=== PATIENT | male | born 1945 | race Caucasian/White ===

== ENCOUNTER 2017-09-17 09:04 | Day surgery (SDC) | payer OTHER ==
[~2017-09-17] VITALS: Ht 180.3 cm; Wt 116.6 kg
[~2017-09-17 09:04] MED LIST: AMLODIPINE; ASPI81EC PO; ATOR10 PO; CHLO2 PO; CIPRSO OD; CLON.1 PO; Exforge 10-3201 EACH PO; FLUO20 PO; FLUOXETINE PO; HYDCHL25 PO; HYDMOR2 PO; IBUP800 PO; INDO50 PO; KLOR-CON PO; LEVO-T50 MCG PO; OXYACE5T PO; POTCHL10ER PO; PROM25 PO; RXHYDMOR2 PO; TAMS.4ER PO; TRAN2 PO; TRAZ50 PO; VALSARTAN
== END 2017-09-17 14:40 | disposition home or self-care (01) ==
LOC: ORSCSDS 09:04
PROVIDERS: Orthopaedic Surgery
PROC: 0LQ24ZZ Repair Left Shoulder Tendon, Percutaneous Endoscopic Approach (ICD-10-PCS; principal; 2017-09-17 10:30)
PROC: 0RNK4ZZ Release Left Shoulder Joint, Percutaneous Endoscopic Approach (ICD-10-PCS; principal; 2017-09-17 10:30)
DX: M75.122 Complete rotator cuff tear or rupture of left shoulder, not specified as traumatic (principal); M75.42 Impingement syndrome of left shoulder; I10 Essential (primary) hypertension; G47.33 Obstructive sleep apnea (adult) (pediatric); E03.9 Hypothyroidism, unspecified; Z79.899 Other long term (current) drug therapy; E66.9 Obesity, unspecified; Z68.35 Body mass index [BMI] 35.0-35.9, adult
CPT/HCPCS: C1713; J0171; J0690; J1100; J1885; J2250; J2405; J2710; J3010; J7120

== ENCOUNTER → 2017-10-03 | Outpatient (CLI) | payer OTHER | END | disposition home or self-care (01) | LOC: LAB SHORT 08:36 → PLD 08:36 | DX: C43.59 Malignant melanoma of other part of trunk (principal) | CPT/HCPCS: 88305; 88341; 88342 ==

== ENCOUNTER → 2018-08-22 | Outpatient (CLI) | payer OTHER | END | disposition home or self-care (01) | LOC: LAB SHORT 11:51 → PLD 11:51 | DX: D48.5 Neoplasm of uncertain behavior of skin (principal) | CPT/HCPCS: 88305 ==

== ENCOUNTER 2019-08-20 16:07 | Emergency (ER) | payer OTHER ==
[~2019-08-20] VITALS: Ht 180.3 cm; Wt 100.7 kg
[~2019-08-20 16:07] MED LIST changes: +AMLO10 PO; -Exforge 10-3201 EACH PO; -FLUO20 PO; -LEVO-T50 MCG PO; +Prozac40 MG PO
[2019-08-20 16:39] LABS: Hematocrit 41.4 % (37.0-53.0); Hemoglobin 13.6 g/dL (13.5-17.5); Mean Corpuscular HGB 31.1 pg (26.0-34.0); Mean Corpuscular HGB Conc 32.9 g/dL (31.5-36.5); Mean Corpuscular Volume 95 fL (80-100); Mean Platelet Volume 11.6 fL (9.1-12.4); Platelet Count 116 K/mm3 (150-400); RDW Coefficient Variation 13.8 % (11.7-14.2); RDW Standard Deviation 48.2 fL (35.1-46.3); Red Blood Cell Count 4.37 M/mm3 (4.30-5.90); White Blood Cell Count 8.26 K/mm3 (4.00-11.30)
[2019-08-20 17:08] LABS: Alanine Aminotransfer (ALT/SGP 35 U/L (12-78); Albumin, Blood 3.6 g/dL (3.4-5.0); Albumin/Globulin Ratio 1.2 (0.8-1.8); Alk Phos 136 U/L (50-136); Anion Gap 8 mmol/L (6-16); Aspartate Aminotrans (AST/SGOT 71 U/L (12-37); Bilirubin, Total 0.6 mg/dL (0.1-1.0); Blood Urea Nitrogen 21 mg/dL (8-24); Bun/Creatinine Ratio 14.2 (12.0-20.0); CO2, Blood 25 mmol/L (21-32); Calcium, Blood 9.6 mg/dL (8.5-10.1); Chloride, Blood 109 mmol/L (98-108); Creatinine, Blood 1.48 mg/dL (0.60-1.20); Glomerular Filtration Rate 49 (60-); Glucose, Blood 89 mg/dL (70-99); Potassium, Blood 4.1 mmol/L (3.5-5.5); Sodium, Blood 142 mmol/L (136-145); Total Protein, Blood 6.6 g/dL (6.4-8.2); Troponin I <0.015 ng/mL (0.000-0.040)
[2019-08-20 17:26] LABS: BASOPHILS PERCENT MAN 0 % (0-2); EOSINOPHILS ABSOLUTE MAN 0.08 K/mm3 (0.00-0.68); EOSINOPHILS PERCENT MAN 1 % (0-6); LYMPHOCYTES % ATYPICAL MANUAL 3 % (0-0); LYMPHOCYTES ABSOLUTE MAN 3.38 K/mm3 (0.84-5.20); LYMPHOCYTES PERCENT MAN 38 % (21-46); MONOCYTES PERCENT MAN 17 % (4-13); NEUTROPHILS ABSOLUTE MAN 3.38 K/mm3 (1.96-9.15); SEG NEUTROPHILS PERCENT MAN 41 % (41-73); TOTAL CELLS COUNTED 100
== END 2019-08-20 20:48 | disposition home or self-care (01) ==
LOC: ER 16:07
PROVIDERS: Physician Assistant
DX: J90 Pleural effusion, not elsewhere classified (principal); R16.1 Splenomegaly, not elsewhere classified; C85.90 Non-Hodgkin lymphoma, unspecified, unspecified site; Z88.5 Allergy status to narcotic agent; Z88.8 Allergy status to other drugs, medicaments and biological substances; Z79.899 Other long term (current) drug therapy; Z79.82 Long term (current) use of aspirin; I10 Essential (primary) hypertension; Z87.891 Personal history of nicotine dependence
CPT/HCPCS: 36415; 71260; 80053; 84484; 85025; 93005; 93010; 99284-25; Q9967

== ENCOUNTER 2019-08-24 21:13 | Emergency (ER) | payer OTHER ==
[~2019-08-24] VITALS: Ht 180.3 cm; Wt 101.2 kg
[2019-08-24 22:09] LABS: BASOPHILS ABSOLUTE AUTO 0.04 K/mm3 (0.00-0.23); BASOPHILS PERCENT AUTO 1 % (0-2); EOSINOPHILS ABSOLUTE AUTO 0.04 K/mm3 (0.00-0.68); EOSINOPHILS PERCENT AUTO 1 % (0-6); Hematocrit 41.1 % (37.0-53.0); Hemoglobin 13.6 g/dL (13.5-17.5); Mean Corpuscular HGB 31.1 pg (26.0-34.0); Mean Corpuscular HGB Conc 33.1 g/dL (31.5-36.5); Mean Corpuscular Volume 94 fL (80-100); Mean Platelet Volume 11.4 fL (9.1-12.4); Platelet Count 110 K/mm3 (150-400); RDW Coefficient Variation 13.7 % (11.7-14.2); RDW Standard Deviation 47.2 fL (35.1-46.3); Red Blood Cell Count 4.38 M/mm3 (4.30-5.90); White Blood Cell Count 5.38 K/mm3 (4.00-11.30)
[2019-08-24 22:12] LABS: IMMATURE GRAN ABSOLUTE AUTO 0.01 K/mm3 (0.00-0.10); IMMATURE GRAN PERCENT AUTO 0 % (0-1); LYMPHOCYTES PERCENT AUTO 20 % (21-46); MONOCYTES ABSOLUTE AUTO 1.72 K/mm3 (0.16-1.47); MONOCYTES PERCENT AUTO 32 % (4-13); NEUTROPHILS ABSOLUTE AUTO 2.47 K/mm3 (1.96-9.15); NEUTROPHILS PERCENT AUTO 46 % (41-73)
[2019-08-24 22:25] LABS: Albumin, Blood 3.6 g/dL (3.4-5.0); Albumin/Globulin Ratio 1.2 (0.8-1.8); Bilirubin, Total 0.8 mg/dL (0.1-1.0); Bun/Creatinine Ratio 15.1 (12.0-20.0); Calcium, Blood 9.3 mg/dL (8.5-10.1); Creatinine, Blood 1.46 mg/dL (0.60-1.20); Potassium, Blood 3.8 mmol/L (3.5-5.5); Total Protein, Blood 6.6 g/dL (6.4-8.2)
[2019-08-24] MEDS ORDERED: IRBESARTAN150 MG PO (22:56)
[2019-08-24] MEDS ORDERED: LEVSOD50 PO (22:57)
[2019-08-24] MEDS ORDERED: ATOR10 PO (22:57)
[2019-08-24] MEDS ORDERED: PREVNAR 13 SYR0.5 ML IM (22:58)
[2019-08-25] MEDS ORDERED: HYDR1TAB94 PO (00:12)
[2019-08-25] MEDS ORDERED: MOTRIN IB200 MG PO (00:12)
[2019-08-25 00:37] LABS: Source, Urine Voided
[2019-08-25 00:41] LABS: Bilirubin, Urine Neg (Neg); Blood, Urine 5+ (Neg); Glucose Qualitative, Urine Neg (Neg); Ketones, Urine Neg (Neg); Leukocyte Esterase, Urine 1+ (Neg); Nitrite, Urine Neg (Neg); Protein, Urine 2+ (Neg); Urobilinogen, Urine NORM (Normal)
[2019-08-25 00:42] LABS: Appearance, Urine Clear (Clear); Color, Urine Yellow (P-Yellow)
[2019-08-25 00:49] LABS: Amorphous Light (0-Heavy); Bacteria Mod /hpf; Hyaline Casts 50-100 /lpf (0-2); Mucus Mod (0-Heavy); Squamous Epithelial Cells Not Seen /hpf (Few)
== END 2019-08-25 00:53 | disposition home or self-care (01) ==
LOC: ER 21:13
PROVIDERS: Emergency Medicine; Physician Assistant
DX: N13.2 Hydronephrosis with renal and ureteral calculous obstruction (principal); C85.90 Non-Hodgkin lymphoma, unspecified, unspecified site; I10 Essential (primary) hypertension; G47.30 Sleep apnea, unspecified; Z88.5 Allergy status to narcotic agent; Z79.899 Other long term (current) drug therapy; Z87.891 Personal history of nicotine dependence
CPT/HCPCS: 36415; 51798; 74176; 80053; 81001; 83690; 85025; 87086; 96361; 96374; 99284-25; J1885; J7030

== ENCOUNTER → 2019-08-25 | Outpatient (CLI) | payer OTHER ==
[~2019-08-25] MED LIST changes: +ALLO300 PO; +HYDR1TAB94 PO; +IRBESARTAN150 MG PO; +LEVSOD50 PO; +METO25ER PO; +MOTRIN IB200 MG PO; +PREVNAR 13 SYR0.5 ML IM
[2019-09-10 11:07] LABS: CA OXALATE MONOHYDR. 10 % (.); COLOR Orange (.); SIZE 5x4x3 mm (.); URIC ACID 88 % (.); WEIGHT 37.8 mg (.)
== END | disposition home or self-care (01) ==
LOC: LAB SHORT 09:00 → LAB 09:00
PROVIDERS: Internal Medicine
DX: N20.0 Calculus of kidney (principal)
CPT/HCPCS: 82360

== ENCOUNTER 2019-09-09 15:49 | Inpatient (IN) | payer OTHER ==
[~2019-09-09] VITALS: Ht 180.3 cm; Wt 101.1 kg
[~2019-09-09 15:49] MED LIST changes: -ALLO300 PO; -METO25ER PO
[2019-09-09 16:46] LABS: BASOPHILS ABSOLUTE AUTO 0.01 K/mm3 (0.00-0.23); BASOPHILS PERCENT AUTO 0 % (0-2); EOSINOPHILS ABSOLUTE AUTO 0.11 K/mm3 (0.00-0.68); EOSINOPHILS PERCENT AUTO 2 % (0-6); Hematocrit 38.5 % (37.0-53.0); IMMATURE GRAN ABSOLUTE AUTO 0.09 K/mm3 (0.00-0.10); IMMATURE GRAN PERCENT AUTO 1 % (0-1); LYMPHOCYTES ABSOLUTE AUTO 0.22 K/mm3 (0.84-5.20); LYMPHOCYTES PERCENT AUTO 3 % (21-46); MONOCYTES ABSOLUTE AUTO 0.27 K/mm3 (0.16-1.47); MONOCYTES PERCENT AUTO 4 % (4-13); Mean Corpuscular HGB 31.3 pg (26.0-34.0); Mean Corpuscular HGB Conc 33.8 g/dL (31.5-36.5); Mean Corpuscular Volume 93 fL (80-100); Mean Platelet Volume 11.2 fL (9.1-12.4); NEUTROPHILS PERCENT AUTO 90 % (41-73); Platelet Count 66 K/mm3 (150-400); RDW Coefficient Variation 14.1 % (11.7-14.2); RDW Standard Deviation 47.6 fL (35.1-46.3); Red Blood Cell Count 4.16 M/mm3 (4.30-5.90)
[2019-09-09 17:04] LABS: Albumin, Blood 3.4 g/dL (3.4-5.0); Albumin/Globulin Ratio 1.2 (0.8-1.8); Bilirubin, Total 0.9 mg/dL (0.1-1.0); Calcium, Blood 8.3 mg/dL (8.5-10.1); Creatinine, Blood 1.29 mg/dL (0.60-1.20); Globulin, Blood 2.8 g/dL (2.2-4.0); Potassium, Blood 3.5 mmol/L (3.5-5.5); Total Protein, Blood 6.2 g/dL (6.4-8.2); Troponin I 0.019 ng/mL (0.000-0.040)
[2019-09-09 18:02] LABS: Phosphorus, Blood 3.5 mg/dL (2.5-4.9)
[2019-09-09 18:34] LABS: Source, Urine Clean Catch
[2019-09-09 18:37] LABS: Appearance, Urine Clear (Clear); Bilirubin, Urine Neg (Neg); Blood, Urine 3+ (Neg); Color, Urine Amber (P-Yellow); Glucose Qualitative, Urine Neg (Neg); Ketones, Urine 2+ (Neg); Leukocyte Esterase, Urine 1+ (Neg); Nitrite, Urine Neg (Neg); Protein, Urine 2+ (Neg); Specific Gravity, Urine 1.025 (1.003-1.022); Urobilinogen, Urine 1+ (Normal)
[2019-09-09 18:47] LABS: Amorphous Light (0-Heavy); Bacteria Many /hpf; Mucus Light (0-Heavy); Squamous Epithelial Cells Few /hpf (Few)
[2019-09-09] MEDS ORDERED: ALLO300 PO (18:49)
[2019-09-09] MEDS ORDERED: HYDCHL25 PO (19:08)
--- NOTE | 2019-09-09 20:40 | NUR ---
ANGELA IS BEING ADMITTED FOR INTRACTABLE NAUSEA AND VOMITING, UTI, AND DYSPNEA. ANGELA ARRIVED TO THE FLOOR VIA WC. WAS ABLE TO TRANSFER WITH 1 ASSIST TO THE BED. SLIGHTLY UNSTEADY ON HIS FEET. REPORTS BLE WEAKNESS FOR SEVERAL DAYS NOW. STATES HE HAD CHEMO FOR NEWLY DX LYPHOMA LAST WEEK. SINCE THEN HE HAS HAD N/V AND INABILITY TO KEEP ANYTHING DOWN. NO NAUSEA CURRENTLY, PHENERGAN GIVEN IN ER. ABD TENDER TO TOUCH, BM TODAY. LUNG SOUNDS DIMINISHED, NO RESPIRTORY HX OTHER THEN TOLD HE HAD FLUID IN THE [place] SAC PRIOR TO CHEMO NOT ENOUGH TO TAP. NOW DYSPNIC AND REQUIRING 10L OF O2. SATS WERE 96% TURNED O2 DOWN TO 8L, RT NOTIFED. NO EDEMA NOTED. HR REGULAR NO MURMUR. BP NORMAL. MILD TEMP, WILL MONITOR. SKIN PDI. IV TO LEFT WRIST STARTED AT [facility] TODAY. FLUSHED GOOD. WENT HOME FOR THE NIGHT, CALL LIGHT GIVEN AND INSTRUCTED ON. WILL MONITOR AND PROVIDE INTERVENTIONS THROUGOUT THE NIGHT.
[2019-09-10 04:44] LABS: BASOPHILS ABSOLUTE AUTO 0.01 K/mm3 (0.00-0.23); BASOPHILS PERCENT AUTO 0 % (0-2); EOSINOPHILS ABSOLUTE AUTO 0.07 K/mm3 (0.00-0.68); EOSINOPHILS PERCENT AUTO 2 % (0-6); Hematocrit 34.8 % (37.0-53.0); Hemoglobin 11.6 g/dL (13.5-17.5); IMMATURE GRAN ABSOLUTE AUTO 0.07 K/mm3 (0.00-0.10); IMMATURE GRAN PERCENT AUTO 2 % (0-1); LYMPHOCYTES ABSOLUTE AUTO 0.17 K/mm3 (0.84-5.20); LYMPHOCYTES PERCENT AUTO 4 % (21-46); MONOCYTES ABSOLUTE AUTO 0.21 K/mm3 (0.16-1.47); MONOCYTES PERCENT AUTO 5 % (4-13); Mean Corpuscular HGB 31.2 pg (26.0-34.0); Mean Corpuscular HGB Conc 33.3 g/dL (31.5-36.5); Mean Corpuscular Volume 94 fL (80-100); NEUTROPHILS ABSOLUTE AUTO 4.15 K/mm3 (1.96-9.15); NEUTROPHILS PERCENT AUTO 89 % (41-73); Platelet Count 63 K/mm3 (150-400); RDW Coefficient Variation 14.3 % (11.7-14.2); RDW Standard Deviation 48.5 fL (35.1-46.3); Red Blood Cell Count 3.72 M/mm3 (4.30-5.90); White Blood Cell Count 4.68 K/mm3 (4.00-11.30)
[2019-09-10 05:03] LABS: Albumin, Blood 2.9 g/dL (3.4-5.0); Albumin/Globulin Ratio 1.1 (0.8-1.8); Bilirubin, Total 0.6 mg/dL (0.1-1.0); Bun/Creatinine Ratio 12.5 (12.0-20.0); Calcium, Blood 7.4 mg/dL (8.5-10.1); Creatinine, Blood 1.28 mg/dL (0.60-1.20); Globulin, Blood 2.6 g/dL (2.2-4.0); Magnesium, Blood 1.3 mg/dL (1.6-2.4); Potassium, Blood 3.4 mmol/L (3.5-5.5); Total Protein, Blood 5.5 g/dL (6.4-8.2)
--- NOTE | 2019-09-10 05:46 | NUR ---
SHIFT SUMMARY: PAULETTE WAS ADMITTED TO THE FLOOR LAST NIGHT FOR INTRACTABLE NAUSEA AND VOMITING, UTI, AND DYSPNEA. HE HAS NOT HAD ANY NAUSEA SINCE HE HAS BEEN ON THE FLOOR. NO ANTIEMETICS WERE USED. WAS ABLE TO TOLERATE WATER. RECEIVED 1 LITER OF BOLUS THEN IV FLUIDS STARTED AT 125ML/HR. USED URINAL AT BEDSIDE, URINE WAS CONCENTRATED AND ORANGE COLOR. HE ARRIVED TO THE FLOOR ON 10L OF O2, AT WHICH HE CONTINUED TO DESAT WHEN HE SLEPT. CALLED RT AND HE WAS PLACED ON CPAP WITH 10L O2 FEED IN. HE DID NOT TOLERATE THE MASK WELL, AND TOOK IT OFF CAUSING HIS SATS TO DROP IN LOW 80'S. UNABLE TO MAINTAIN 90'S ON 10L OF NC, HE WAS PLACED ON SMALLER MASK AND INFORMED THAT HE MUST WEAR IT WHILE SLEEPING OR HE WOULD NEED TO GO ON BIPAP. HE SLEPT REST OF THE NIGHT WITH THE CPAP SATS REMAINED IN THE LOW 90'S. VS ON ARRIVAL SHOWED TEMP OF 101. ON RETAKE IT WAS NORMAL LIMITS. DISCUSSED DEEP BREATHING AND IMPORTANCE OF OXYGENATION. CALL LIGHT REMAINED IN REACH AND BED ALARM REMAINED ON.
--- NOTE | 2019-09-10 18:26 | NUR ---
PT HAS IMPROVED THE SHIFT HAS PROGRESSED . HIS BREATHING IS NO LONGER LABORED AND HE IS ABLE TO AMBULATE WHILE ON O2. HE HAS TOLERATED FOOD AND FLUIDS WELL. HE HAS A RASH ON BACK AND FACE WHICH HAS NOT CAUSED ANY DISCOMFORT. PT HAS NOT HAD ANY EMESIS THIS SHIFT. NO PAIN REPORTED. CALL LIGHT WITHIN REACH.
[2019-09-11 04:37] LABS: BASOPHILS ABSOLUTE AUTO 0.02 K/mm3 (0.00-0.23); BASOPHILS PERCENT AUTO 1 % (0-2); EOSINOPHILS ABSOLUTE AUTO 0.12 K/mm3 (0.00-0.68); EOSINOPHILS PERCENT AUTO 3 % (0-6); Hematocrit 35.7 % (37.0-53.0); Hemoglobin 11.9 g/dL (13.5-17.5); IMMATURE GRAN ABSOLUTE AUTO 0.04 K/mm3 (0.00-0.10); IMMATURE GRAN PERCENT AUTO 1 % (0-1); LYMPHOCYTES ABSOLUTE AUTO 0.33 K/mm3 (0.84-5.20); LYMPHOCYTES PERCENT AUTO 8 % (21-46); MONOCYTES ABSOLUTE AUTO 0.18 K/mm3 (0.16-1.47); MONOCYTES PERCENT AUTO 4 % (4-13); Mean Corpuscular HGB 31.1 pg (26.0-34.0); Mean Corpuscular HGB Conc 33.3 g/dL (31.5-36.5); Mean Corpuscular Volume 93 fL (80-100); Mean Platelet Volume 11.2 fL (9.1-12.4); NEUTROPHILS PERCENT AUTO 83 % (41-73); Platelet Count 64 K/mm3 (150-400); RDW Coefficient Variation 14.5 % (11.7-14.2); RDW Standard Deviation 48.9 fL (35.1-46.3); Red Blood Cell Count 3.83 M/mm3 (4.30-5.90); White Blood Cell Count 4.09 K/mm3 (4.00-11.30)
--- NOTE | 2019-09-11 04:44 | NUR ---
CNC MILL PROGRAMMER SUMMARY NO ACUTE CHANGES THIS SHIFT. PT AAOX4 AND PLEASANT. INDEPENDENT TO BATHROOM. PT RESPIRATORY STATUS IMPROVED TONIGHT. PT ABLE TO REMAIN ON 10L NC AND MAINTAIN O2 SATS WITHOUT THE NEED FOR CPAP. PREVIOUS NIGHT PT HAD TO USE CPAP TO MAINTAIN O2 SATS >90% PT DENIES PAIN, N/V. PT ABLE TO EAT SOME SNACKS AND TOLERATED WELL. VSS, WILL CONTINUE TO MONITOR.
[2019-09-11 05:08] LABS: Magnesium, Blood 1.6 mg/dL (1.6-2.4)
[2019-09-11 05:09] LABS: Alanine Aminotransfer (ALT/SGP 31 U/L (12-78); Albumin, Blood 3.2 g/dL (3.4-5.0); Albumin/Globulin Ratio 1.2 (0.8-1.8); Alk Phos 68 U/L (50-136); Anion Gap 6 mmol/L (6-16); Aspartate Aminotrans (AST/SGOT 19 U/L (12-37); Bilirubin, Total 0.8 mg/dL (0.1-1.0); Blood Urea Nitrogen 19 mg/dL (8-24); Bun/Creatinine Ratio 16.7 (12.0-20.0); CO2, Blood 27 mmol/L (21-32); Calcium, Blood 7.6 mg/dL (8.5-10.1); Chloride, Blood 108 mmol/L (98-108); Creatinine, Blood 1.14 mg/dL (0.60-1.20); Globulin, Blood 2.7 g/dL (2.2-4.0); Glomerular Filtration Rate >60 (60-); Glucose, Blood 87 mg/dL (70-99); Potassium, Blood 3.2 mmol/L (3.5-5.5); Sodium, Blood 141 mmol/L (136-145); Total Protein, Blood 5.9 g/dL (6.4-8.2)
--- NOTE | 2019-09-11 16:56 | NUR ---
PATIENT A/OX4, UP INDEPENDENTLY IN ROOM. VSS, WEANED DOWN TO 3LO2 VIA NC. DENIES ANY NAUSEA OR ABDOMINAL DISCOMFORT, ADVANCED TO REGULAR DIET. LUNGS CLEAR/DIM THROUGOUT. DENIES ANY PAIN. AT BEDSIDE FOR MOST OF THE SHIFT. SKIN INTACT. 18G IV TO R FA WNL AND SL. PATIENT CALM AND COOPERATIVE WITH CARE. CALLS APPROPRIATELY FOR ASSISTANCE.
[2019-09-12 04:58] LABS: Hematocrit 38.7 % (37.0-53.0); Hemoglobin 13.1 g/dL (13.5-17.5); Mean Corpuscular HGB 31.3 pg (26.0-34.0); Mean Corpuscular HGB Conc 33.9 g/dL (31.5-36.5); Mean Corpuscular Volume 92 fL (80-100); Mean Platelet Volume 11.3 fL (9.1-12.4); Platelet Count 77 K/mm3 (150-400); RDW Coefficient Variation 14.6 % (11.7-14.2); RDW Standard Deviation 49.3 fL (35.1-46.3); Red Blood Cell Count 4.19 M/mm3 (4.30-5.90); White Blood Cell Count 4.79 K/mm3 (4.00-11.30)
--- NOTE | 2019-09-12 05:01 | NUR ---
GROUND INSTRUCTOR ADVANCED SUMMARY PT AAOX4 AND INDEPENDENT. AT START OF SHIFT PT REPORTS SOME SOB AND NAUSEA. GIVEN ZOFRAN. DAY SHIFT RN TITRATED O2 DOWN TO 3L FROM 10L. O2 TITRATED BACK TO 5L. SAME 5L BLEED IN ON CPAP WHILE PT HAS BEEN SLEEPING. O2 SATS AVG 91-93%. PT STATES THIS AM HE FEELS MUCH BETTER AND HAS GOTTEN GOOD REST. DENIES FURTHER NAUSEA. VSS, WILL CONTINUE TO MONITOR.
[2019-09-12 05:10] LABS: Anion Gap 7 mmol/L (6-16); Blood Urea Nitrogen 18 mg/dL (8-24); CO2, Blood 28 mmol/L (21-32); Calcium, Blood 7.5 mg/dL (8.5-10.1); Chloride, Blood 105 mmol/L (98-108); Glomerular Filtration Rate >60 (60-); Glucose, Blood 91 mg/dL (70-99); Potassium, Blood 3.2 mmol/L (3.5-5.5); Sodium, Blood 140 mmol/L (136-145)
[2019-09-12 06:11] LABS: BASOPHILS PERCENT MAN 0 % (0-2); EOSINOPHILS ABSOLUTE MAN 0.14 K/mm3 (0.00-0.68); EOSINOPHILS PERCENT MAN 3 % (0-6); LYMPHOCYTES ABSOLUTE MAN 0.62 K/mm3 (0.84-5.20); LYMPHOCYTES PERCENT MAN 13 % (21-46); MONOCYTES ABSOLUTE MAN 0.67 K/mm3 (0.16-1.47); MONOCYTES PERCENT MAN 14 % (4-13); NEUTROPHILS ABSOLUTE MAN 3.35 K/mm3 (1.96-9.15); SEG NEUTROPHILS PERCENT MAN 70 % (41-73); TOTAL CELLS COUNTED 100
--- NOTE | 2019-09-12 18:11 | NUR ---
PATIENT A/OX4, UP INDEPENDENTLY IN ROOM. MAINTAINING SATS AT 3LO2 VIA NC. DENIES ANY PAIN OR DISCOMFORT. DENIES ANY NAUSEA THIS SHIFT. 18G IV TO R FA WNL AND SL. PATIENT IS CALM AND COOPERATIVE WITH CARE AND USES CALL LIGHT APPROPRIATELY FOR ASSISTANCE. APPETITE IMPROVED TODAY.
--- NOTE | 2019-09-12 22:53 | NUR ---
PT AAOX4, PLEASANT AND COOPERATIVE WITH CARE. IN ROOM AT BEGINING OF SHIFT. ON 3LNC AND CONT PULSE OX. VSS. PT DENIES NEEDS AT THIS TIME. APPEARS IN NO ACUTE DISTRESS. WILL CONTINUE TO MONITOR.
[2019-09-13 04:56] LABS: Anion Gap 6 mmol/L (6-16); Blood Urea Nitrogen 22 mg/dL (8-24); Bun/Creatinine Ratio 18.3 (12.0-20.0); CO2, Blood 29 mmol/L (21-32); Calcium, Blood 7.9 mg/dL (8.5-10.1); Chloride, Blood 106 mmol/L (98-108); Glomerular Filtration Rate >60 (60-); Glucose, Blood 94 mg/dL (70-99); Potassium, Blood 3.4 mmol/L (3.5-5.5); Sodium, Blood 141 mmol/L (136-145)
--- NOTE | 2019-09-13 05:02 | NUR ---
NOC SHIFT SUMMARY PT PLEASANT AND COOPERATIVE WITH CARE. VSS. NO EVENTS OR STATUS CHANGES NOTED DURING THE NIGHT. PRESENTLY APPEARS TO BE SLEEPING RESTFULLY. PULSE OX SHOWS SATTING AT 90 WITH CPAP ON AND 4L BLEED IN OF O2. RESP APPEAR EVEN AND UNLABORED. WILL CONTINUE TO MONITOR.
[2019-09-13] MEDS ORDERED: METO25ER PO (13:41)
--- NOTE | 2019-09-13 14:04 | NUR ---
PT TO DISCHARGE HOME. IV REMOVED, NO SS OF INFECTION NOTED. MEDS FAXED INTO [facility]. NURSE WENT OVER NEW MEDS AND EDUCATED ON FOLLOWING UP WITH PCP AND CANCER DOCTOR. PT DRESSED SELF AND WAS TAKEN OUT BY NURSE VIA WC. TOOK PATIENT HOME.
== END 2019-09-13 13:50 | disposition home or self-care (01) | DRG 391 ==
LOC: ER 15:49 → MEDS 15:50
PROVIDERS: Emergency Medicine; Hospitalist; Physician Assistant; ADMIT Internal Medicine
DX: R11.2 Nausea with vomiting, unspecified (principal); J96.01 Acute respiratory failure with hypoxia; N17.9 Acute kidney failure, unspecified; C85.90 Non-Hodgkin lymphoma, unspecified, unspecified site; J98.11 Atelectasis; I10 Essential (primary) hypertension; E03.9 Hypothyroidism, unspecified; E78.5 Hyperlipidemia, unspecified; E86.0 Dehydration; Z87.891 Personal history of nicotine dependence; I12.9 Hypertensive chronic kidney disease with stage 1 through stage 4 chronic kidney disease, or unspecified chronic kidney disease; N18.9 Chronic kidney disease, unspecified; G47.33 Obstructive sleep apnea (adult) (pediatric); R21 Rash and other nonspecific skin eruption; R50.9 Fever, unspecified; Z79.899 Other long term (current) drug therapy; T45.1X5A Adverse effect of antineoplastic and immunosuppressive drugs, initial encounter; E87.70 Fluid overload, unspecified
CPT/HCPCS: 36415; 71045; 71046; 80048; 80053; 81001; 82947; 83615; 83690; 83735; 83880; 84100; 84484; 84550; 85025; 87040; 87086; 93005; 93010; 94660; 94667; 94761; 94762; 96361; 96372; 96374; 96375; 96376; 99285-25; G0378; J0696; J1650; J1940; J2405; J2550; J2930; J3475; J3480; J7030; P9046

== ENCOUNTER 2019-10-18 01:21 | Inpatient (IN) | payer OTHER ==
[~2019-10-18] VITALS: Ht 177.8 cm; Wt 81.0 kg
[~2019-10-18 01:21] MED LIST changes: +ALLO300 PO; +METO25ER PO
[2019-10-18] MEDS ORDERED: DEXA4 PO (02:04)
[2019-10-18 02:05] LABS: BASOPHILS ABSOLUTE AUTO 0.01 K/mm3 (0.00-0.23); BASOPHILS PERCENT AUTO 0 % (0-2); Hemoglobin 10.3 g/dL (13.5-17.5); LYMPHOCYTES ABSOLUTE AUTO 0.08 K/mm3 (0.84-5.20); LYMPHOCYTES PERCENT AUTO 1 % (21-46); MONOCYTES ABSOLUTE AUTO 0.33 K/mm3 (0.16-1.47); MONOCYTES PERCENT AUTO 6 % (4-13); Mean Corpuscular HGB 30.7 pg (26.0-34.0); Mean Corpuscular HGB Conc 34.3 g/dL (31.5-36.5); Mean Corpuscular Volume 90 fL (80-100); Mean Platelet Volume 11.9 fL (9.1-12.4); Platelet Count 76 K/mm3 (150-400); RDW Coefficient Variation 18.3 % (11.7-14.2); RDW Standard Deviation 59.8 fL (35.1-46.3); Red Blood Cell Count 3.35 M/mm3 (4.30-5.90); White Blood Cell Count 5.77 K/mm3 (4.00-11.30)
[2019-10-18] MEDS ORDERED: METO10 PO (02:05)
[2019-10-18] MEDS ORDERED: POTA10T PO (02:05)
[2019-10-18] MEDS ORDERED: IRBE150 PO (02:06)
[2019-10-18 02:07] LABS: EOSINOPHILS ABSOLUTE AUTO 0.01 K/mm3 (0.00-0.68); EOSINOPHILS PERCENT AUTO 0 % (0-6); IMMATURE GRAN ABSOLUTE AUTO 0.12 K/mm3 (0.00-0.10); IMMATURE GRAN PERCENT AUTO 2 % (0-1); NEUTROPHILS ABSOLUTE AUTO 5.22 K/mm3 (1.96-9.15); NEUTROPHILS PERCENT AUTO 90 % (41-73)
[2019-10-18] MEDS ORDERED: Prozac40 MG PO (02:07)
[2019-10-18] MEDS ORDERED: AMLO10 PO (02:07)
[2019-10-18] MEDS ORDERED: LEVSOD50 PO (02:07)
[2019-10-18] MEDS ORDERED: ATOR10 PO (02:08)
[2019-10-18] MEDS ORDERED: CLON.1 PO (02:08)
[2019-10-18] MEDS ORDERED: HYDRA25 PO (02:09)
[2019-10-18] MEDS ORDERED: HYDROCHLOROTHIA25 MG PO (02:11)
[2019-10-18 02:17] LABS: Alanine Aminotransfer (ALT/SGP 28 U/L (12-78); Albumin, Blood 3.2 g/dL (3.4-5.0); Albumin/Globulin Ratio 1.4 (0.8-1.8); Alk Phos 90 U/L (50-136); Anion Gap 10 mmol/L (6-16); Aspartate Aminotrans (AST/SGOT 32 U/L (12-37); Bilirubin, Total 0.7 mg/dL (0.1-1.0); Blood Urea Nitrogen 18 mg/dL (8-24); Bun/Creatinine Ratio 14.6 (12.0-20.0); CO2, Blood 22 mmol/L (21-32); Calcium, Blood 8.1 mg/dL (8.5-10.1); Chloride, Blood 111 mmol/L (98-108); Creatinine, Blood 1.23 mg/dL (0.60-1.20); Globulin, Blood 2.3 g/dL (2.2-4.0); Glomerular Filtration Rate >60 (60-); Glucose, Blood 134 mg/dL (70-99); Potassium, Blood 3.2 mmol/L (3.5-5.5); Sodium, Blood 143 mmol/L (136-145); Total Protein, Blood 5.5 g/dL (6.4-8.2); Troponin I 0.128 ng/mL (0.000-0.040)
[2019-10-18 02:40] LABS: Magnesium, Blood 1.1 mg/dL (1.6-2.4)
[2019-10-18 02:47] LABS: PCO2 Arterial 32.3 mmHg (35-45); PO2 Arterial 70.1 mmHg (80-100); pH Blood Arterial 7.47 (7.35-7.45)
[2019-10-18 02:50] LABS: International Normalized Ratio 1.07; Prothrombin Time Results 11.4 Sec (9.7-11.5)
[2019-10-18 03:55] LABS: Source, Urine Catheter
[2019-10-18 03:59] LABS: Bilirubin, Urine Neg (Neg); Blood, Urine 2+ (Neg); Glucose Qualitative, Urine Neg (Neg); Ketones, Urine Neg (Neg); Leukocyte Esterase, Urine Neg (Neg); Nitrite, Urine Neg (Neg); Protein, Urine 1+ (Neg); Specific Gravity, Urine 1.015 (1.003-1.022); Urobilinogen, Urine NORM (Normal)
[2019-10-18 04:01] LABS: Appearance, Urine Clear (Clear); Color, Urine Yellow (P-Yellow)
[2019-10-18 04:05] LABS: Amorphous Mod (0-Heavy); Bacteria Not Seen /hpf; Red Blood Cells, Urine 0-2 /hpf (0-2); Squamous Epithelial Cells Not Seen /hpf (Few); White Blood Cells, Urine Rare /hpf (0-5)
--- NOTE | 2019-10-18 06:16 | NUR ---
PCU ADMIT / SHIFT SUMMARY PT BROUGHT TO PCU RM 10 BY JORGE FROM ER @ APPROX 0445, ACCOMPANIED BY & GRANDDAUGHTER. PT A&O X4, ABLE TO STAND AND TRANSFER TO PCU BED W/ 1 PERSON ASSIST. VSS. MONITOR SHOWS SR W/ PVC's, HR 90's. LUNG SOUNDS CLEAR, DIM IN BASES. SPO2 > 90% ON 8L OXYMIZER. PT REPORTS RA @ BASELINE. PT W/ DODIE, REFUSING CPAP D/T REPORT OF MAKING PT NAUSEOUS. PT DENIES NAUSEA UPON ADMIT, REPORTING NAUSEA THAT BEGAN @ 1900 LAST NIGHT RELIEVED W/ MEDICATION ADMINISTERED IN ER. PT W/ RED SPOT ON R SIDE OF NECK THAT PT REPORTS HAVING AN UPCOMING APPOINTMENT W/ A PLATEN BUILDER UP FOR. WILL CONTINUE TO MONITOR AND PROVIDE CARE UNTIL REPORT OFF TO DAY SHIFT RN.
[2019-10-18] MEDS ORDERED: ALLO100 PO (06:20)
[2019-10-18 06:49] LABS: Adenovirus Not Detected (NOT DETECT); Bordetella pertussis Not Detected (NOT DETECT); Chlamydophila pneumoniae Not Detected (NOT DETECT); Coronavirus 229E Not Detected (NOT DETECT); Coronavirus HKU1 Not Detected (NOT DETECT); Coronavirus NL63 Not Detected (NOT DETECT); Coronavirus OC43 Not Detected (NOT DETECT); Human Metapneumovirus Not Detected (NOT DETECT); Human Rhinovirus/Enterovirus Not Detected (NOT DETECT); Influenza A Not Detected (NOT DETECT); Influenza A/2009-H1 Not Detected (NOT DETECT); Influenza A/H1 Not Detected (NOT DETECT); Influenza A/H3 Not Detected (NOT DETECT); Influenza B Not Detected (NOT DETECT); Mycoplasma pneumoniae Not Detected (NOT DETECT); Parainfluenza Virus 1 Not Detected (NOT DETECT); Parainfluenza Virus 2 Not Detected (NOT DETECT); Parainfluenza Virus 3 Not Detected (NOT DETECT); Parainfluenza Virus 4 Not Detected (NOT DETECT); Respiratory Syncytial Virus Not Detected (NOT DETECT)
--- NOTE | 2019-10-18 08:35 | NUR ---
AM NOTE... ASSUMED CARE OF PT APROX 0700. PT IS A&Ox4 AND SBA/IND IN THE ROOM. PT WAS ADMITTED FOR RESP FAILURE. PT IS NORMALLY ON RA BUT IS CURRENTLY ON 8L OXYMIZER AT 94%, RR 20 EVEN AN UNLABORED. L/S CLEAR T/O. BT PRESENT AND HYPOACTIVE, ABD IS SOFT AND NONTENDER TO PALP. PT DENIES ANY N/V AT THIS TIME. VS STABLE. CALL LIGHT IN REACH WILL CONTINUE TO MONITOR.
--- NOTE | 2019-10-18 08:57 | NUR ---
PT UPDATE... PT'S FAMILY CALL THIS RN INTO THE ROOM, PT STATED "I THINK I JUST PASSSED A STONE, ITS IN THE TOILET." LOOKING IN THE TOILET THERE IS A LARGE BROWN STONE IN THE BOTTOM OF THE TOILET. PT STATED HE HAD NOT PAIN BUT COULD FEEL IT COME OUT OF HIS PENIS. NO BLOOD OR TRAUMA NOTED ON THE PT'S PENIS. URINE IN THE TOILET IS CLEAR, LIGHT YELLOW. WILL CONTINUE TO MONITOR.
--- NOTE | 2019-10-18 18:01 | NUR ---
SHIFT SUMMARY... NO ACUTE NEGATIVE CHANGES NOTED THIS SHIFT. PT HAD ONE EPISODE OF NAUSEA AT DINNER TIME AND WAS MEDICATED PER EMAR WITH GOOD RESULTS. PT'S VS HAVE BEEN STABLE. PT WAS TITRATED FROM 8L HI FLOW TO 5L WITH O2 SATS >90%. PT IS TO HAVE THORACENTESIS TOMORROW, PER RADIOLOGY DO NOT GIVE LOVONOX TOMORROW. PT AND FAMILY AWARE OF PLAN OF CARE AND ARE AGREEABLE. CALL LIGHT IN REACH WILL CONTINUE TO MONITOR UNTIL REPORT IS GIVEN TO ONCOMING RN.
[2019-10-19 04:17] LABS: BASOPHILS ABSOLUTE AUTO 0.03 K/mm3 (0.00-0.23); BASOPHILS PERCENT AUTO 1 % (0-2); Hematocrit 29.8 % (37.0-53.0); Hemoglobin 9.8 g/dL (13.5-17.5); LYMPHOCYTES ABSOLUTE AUTO 0.04 K/mm3 (0.84-5.20); LYMPHOCYTES PERCENT AUTO 1 % (21-46); MONOCYTES ABSOLUTE AUTO 0.16 K/mm3 (0.16-1.47); MONOCYTES PERCENT AUTO 3 % (4-13); Mean Corpuscular HGB 30.1 pg (26.0-34.0); Mean Corpuscular HGB Conc 32.9 g/dL (31.5-36.5); Mean Corpuscular Volume 91 fL (80-100); Mean Platelet Volume 11.6 fL (9.1-12.4); Platelet Count 56 K/mm3 (150-400); RDW Coefficient Variation 17.9 % (11.7-14.2); RDW Standard Deviation 60.3 fL (35.1-46.3); Red Blood Cell Count 3.26 M/mm3 (4.30-5.90); White Blood Cell Count 5.94 K/mm3 (4.00-11.30)
[2019-10-19 04:29] LABS: EOSINOPHILS ABSOLUTE AUTO 0.01 K/mm3 (0.00-0.68); EOSINOPHILS PERCENT AUTO 0 % (0-6); IMMATURE GRAN ABSOLUTE AUTO 1.33 K/mm3 (0.00-0.10); IMMATURE GRAN PERCENT AUTO 22 % (0-1); NEUTROPHILS ABSOLUTE AUTO 4.37 K/mm3 (1.96-9.15); NEUTROPHILS PERCENT AUTO 74 % (41-73)
[2019-10-19 04:38] LABS: Anion Gap 8 mmol/L (6-16); Blood Urea Nitrogen 12 mg/dL (8-24); Bun/Creatinine Ratio 10.5 (12.0-20.0); CO2, Blood 27 mmol/L (21-32); Calcium, Blood 7.8 mg/dL (8.5-10.1); Chloride, Blood 108 mmol/L (98-108); Creatinine, Blood 1.14 mg/dL (0.60-1.20); Glomerular Filtration Rate >60 (60-); Glucose, Blood 87 mg/dL (70-99); Magnesium, Blood 1.3 mg/dL (1.6-2.4); Potassium, Blood 3.5 mmol/L (3.5-5.5); Sodium, Blood 143 mmol/L (136-145)
[2019-10-19 04:42] LABS: BAND PERCENT MAN 8 % (0-8); BASOPHILS PERCENT MAN 0 % (0-2); EOSINOPHILS ABSOLUTE MAN 0.05 K/mm3 (0.00-0.68); EOSINOPHILS PERCENT MAN 1 % (0-6); LYMPHOCYTES ABSOLUTE MAN 0.17 K/mm3 (0.84-5.20); LYMPHOCYTES PERCENT MAN 3 % (21-46); MONOCYTES ABSOLUTE MAN 0.05 K/mm3 (0.16-1.47); MONOCYTES PERCENT MAN 1 % (4-13); NEUTROPHILS ABSOLUTE MAN 5.64 K/mm3 (1.96-9.15); SEG NEUTROPHILS PERCENT MAN 87 % (41-73); TOTAL CELLS COUNTED 100
--- NOTE | 2019-10-19 05:42 | NUR ---
SHIFT SUMMARY PT A&O X4. VSS. SPO2 > 92% ON 5L NC TITRATED TO 3L NC THIS SHIFT. MONITOR SHOWS SR W/ PVC's, HR 80's-110's. PT HR INCREASE TO 202 BPM FOR APPROX 2 MIN THIS AM WHEN UP TO THE BATHROOM. PT DENIES FEELING ANY CHANGES. TELEMETRY STRIP PRINTED & PLACED IN CHART. NO FURTHER EVENTS OR CHANGES THIS SHIFT. PT DENIES NAUSEA THIS SHIFT. WILL CONTINUE TO MONITOR AND PROVIDE CARE UNTIL REPORT OFF TO DAY SHIFT RN.
--- NOTE | 2019-10-19 11:35 | NUR ---
THORACENTESIS PT TRANSFERED TO IMAGING FOR TAP. MAGNESIUM INFUSING. CONTINUE POT.
[2019-10-19 13:05] LABS: Automated BF RBC Count 0.025 M/mm3 (0-0); Automated BF WBC Count 1.106 K/mm3 (0-999); Body Fluid WBC Count 1106 /mm3 (0-999); RBC Count, Body Fluid 25000 /mm3 (0-0)
[2019-10-19 13:14] LABS: Albumin, Body Fluid 1.8 g/dL; Glucose, Body Fluid 99 mg/dL; Lactate Dehydrogenase, Body Fl 168 U/L; Protein, Body Fluid 2.9 g/dL
[2019-10-19 13:18] LABS: pH, Body Fluid 7.9
[2019-10-19 13:31] LABS: Appearance, Body Fluid Hazy (Clear); Color, Body Fluid Red (None-Yellow); Total Cell Count, Body Fluid 100
--- NOTE | 2019-10-19 15:11 | NUR ---
POST THORACENTESIS PT RETURNED DROM IMAGING VIA W/C ACCOMPANIED BY TECH. PT AWAKE AND ALERT. ABLE TO TRANSFER SELF TO BED. PT SAT UP TO NIBBLE AT LUNCH THAT WAS WAITING FOR HIM. AT BEDSIDE. LEFT POSTERIOR BACK BANDAIDE CD&I. NO CREPITUS NOTED. DR EUBANKS CALLED FOR LAB ORDERS ON FLUID. CONTINUE POT.
--- NOTE | 2019-10-19 21:35 | NUR ---
ASSUMPTION OF CARE ASSUMED CARE OF PT @ 1900, PT ALERT AND ORIENTED TO SELF, PLACE, EVENT AND FOLLOWING DIRECTIONS. PT ON 5L SUPPLEMENTAL O2 TO MAINTAIN SATURATIONS>90%, PT DENIES SOB. PT IN SINUS RHYTHM WITH FREQUENT PAC'S, SOME PVC'S PER TELE MONITOR. PT DENIES ANY GI/ ISSUES, BUT DOES REPORT HAVING A POOR APPETITE. PT DENIES ANY NEEDS AT THIS TIME, CALL LIGHT WITHIN REACH.
--- NOTE | 2019-10-20 05:27 | NUR ---
SHIFT SUMMARY PT RESTED WELL T/O SHIFT, REMAINS AROUSABLE AND ORIENTED x4, PT ON 4L PER HIGHFLOW NC TO MAINTAIN O2 SATURATIONS>90%, R SIDE LS REMAIN VERY DIMINISHED. TMAX THIS SHIFT 100.0. PT CONTINUES TO HAVE POOR APPETITE, DISCUSSED WITH PT FOOD PREFERENCES OR OTHER STRATEGIES TO INCREASE ORAL INTAKE. PT STS HE BECOMES NAUSEOUS WITH MINIMAL INTAKE, INFORMED PT ZOFRAN IS AVAILABLE TO HELP WITH NAUSEA. PT DENIES ANY OTHER GI/ ISSUES.
[2019-10-20 05:50] LABS: Vancomycin, Trough 8.7 ug/mL (5.0-10.0)
--- NOTE | 2019-10-20 09:34 | NUR ---
RIGHT THORACENTESIS PT TRANSPORTED TO IMAGING VIA W/C ACCOMPANIED BY TECH AND CRM ADMINISTRATOR-GUI. CONTINUE POT.
--- NOTE | 2019-10-20 09:58 | NUR ---
RIGHT THORACENTESIS DR EUBANKS DOES NOT WANT LABS/TEST OR PATHOLOGY RUN ON TODAYS FLUID COLLECTION. PENDING TESTS FROM THE THORACENTESIS DONE ON THE LEFT SIDE 10/19/2019. CONTINUE POT.
--- NOTE | 2019-10-20 13:01 | NUR ---
Spoke with bedside CHERY Gan prior to Pt visit. Pt is open to conversation regarding goals of care. Pt resting in bed and is A&O. Pt denies pain and dyspnea at this time. Pt reports mild to moderate anxiety and moderate nausea. Pt's and son at bedside. Engaged in therapeutic discussion regarding goals of care. Listened as Pt reports considering focusing on quality vs longevity. Pt reports plan to have conversation with Dr Nagy and discuss his concerns. Pt reports he has not been tolerating treatment as well as he hoped. He reports his quality of life decreses after receiving treatment. Discussed hospice as an option if Pt decides to discontinue treatment. Pt reports his imediate need is to have his nausea managed and expresses concerns regarding side effects of zofran. Educated Pt on other anti nausea medications and potential side effects. Pt V/U and would like a new regimen for anti nausea. Spoke with bedside CHERY Gan after visit and discussed Pt's wishes. Plan: Will discuss anti nausea regimen with hospitalist. Palliative Care will remain available for symptom management and therapeutic visits.
--- NOTE | 2019-10-20 13:34 | NUR ---
IV ASSESSMENT IV FLUSHED W/O DIFFICULTY, PT DENIES ANY PAIN OR BURNING WHEN FLUSHING
--- NOTE | 2019-10-20 13:38 | NUR ---
IV ASSESSMENT IV IN LEFT ARM ASSESSED, FLUSHED W/O DIFFICULTY, PT DENIES PAIN
[2019-10-21 06:01] LABS: Vancomycin, Trough 9.3 ug/mL (5.0-10.0)
--- NOTE | 2019-10-21 07:45 | NUR ---
SHIFT SUMMARY PATIENT PLEASENT AND COOPERTIVE THROUGHOUT THE NIGHT. PATIENT APPEARED TO SLEEP WELL LAST NIGHT WITH NO COMPLAINTS OF PAIN OR DISCOMFORT. PATIENT INDEPENDENT IN THE ROOM LAST NIGHT. PATIENT APPEARS TO BE IN GOOD SPIRITS, FAMILY PRESENT AT THE BEDSIDE FOR SEVERAL HOURS BEFORE PATIENT WENT TO SLEEP. PATIENT ON 4L O2 VIA N/C THROUGHOUT THE NIGHT. BEDSIDE REPORT GIVEN TO ONCOMING RN.
--- NOTE | 2019-10-21 09:00 | NUR ---
ASSUMPTION OF CARE PT RECEIVED AROUND 0715. AAOX4, VS STABLE, NO S/S OF DISTRESS. PT ON O2 VIA NC @ 4LPM, PULSE OX 93%. DENIES ANY C/O PAIN OR SOB. PT IS INDEPENDENT IN ROOM. PLAN FOR TRANSFER TO MEDICAL FLOOR WHEN BED AVAILABLE. HOSPICE EVAL PENDING. BED LOCKED & IN LOWEST POSITION, CALL MUIR W/ IN REACH. WILL CONTINUE TO MONITOR.
--- NOTE | 2019-10-21 09:24 | NUR ---
Pt visit this AM. Pt resting in bed and denies pain at this time. Pt's Abby at bedside. Engaged in therapeutic discussion regarding goals of care. Pt reports having conversation with Dr Nagy last night and was decided treatement for cancer is not beneficial. Pt has decided to move forward with hospice. Instructed on hospice agencies available with Pt choosing [facility]. Educated on hospice philosophy with V/U made by Pt on . Pt and are requesting to be discharged tomorrow. They request physical therapy to help with regaining strength. Discussed the importance of considering completing POLST with Pt agreeable to complete later this afternoon. No other concerns reported at this time. Discussed case with Dr Dahl, relayed Pt's request for PT and discharge for tomorrow with hospice. Dr Dahl is agreeable with plan. Spoke with [facility]& Shaina Otoole and discussed case. Palliative Care will F/U later this afternoon to assist with completing POLST.
--- NOTE | 2019-10-21 15:54 | NUR ---
NO ACUTE CHANGES THROUGHOUT SHIFT. VS STABLE. PT REMAINS ON 4L O2 VIA NC. PT TRANSPORTED TO MEDICAL FLOOR RM 342. PT LEFT FLOOR VIA WHEELCHAIR IN STABLE CONDITION W/ ALL BELONGINGS.
--- NOTE | 2019-10-21 18:01 | NUR ---
Pt F/U visit this evening. Pt denies pain at this time. Educated Pt and family on POLST including life sustaining measures and risk factors. Assisted Pt on completing POLST and Pt's signs POLST. Pt chooses DNR and Comfort Measures Only. Offered therapeutic listening. Pt's granddaughter present and tearful at times throughout the visit. Offered emotional support. Pt and family express appreciation of visit and have no other concerns at this time. Spoke with bedside CHERY Hoff and discussed case. Palliative Care will remain available.
--- NOTE | 2019-10-21 18:31 | NUR ---
PT TRANSFERRED FROM ICU THIS SHIFT. HE IS ALERT AND ORIENTED AND ABLE TO EXPRESS ANY NEEDS. AND FAMILY AT BEDSIDE. PALLATIVE CARE HAS BEEN IN. CALL LIGHT WITHIN REACH. NO COMPLAINTS .
--- NOTE | 2019-10-22 05:11 | NUR ---
PT HAS BEEN RESTING QUIETLY WITH FEW INTERRUPTIONS THIS SHIFT. CALL LIGHT IN REACH.
[2019-10-22 05:43] LABS: Anion Gap 4 mmol/L (6-16); Blood Urea Nitrogen 17 mg/dL (8-24); Bun/Creatinine Ratio 16.7 (12.0-20.0); CO2, Blood 29 mmol/L (21-32); Calcium, Blood 7.6 mg/dL (8.5-10.1); Chloride, Blood 102 mmol/L (98-108); Creatinine, Blood 1.02 mg/dL (0.60-1.20); Glomerular Filtration Rate >60 (60-); Glucose, Blood 108 mg/dL (70-99); Potassium, Blood 3.5 mmol/L (3.5-5.5); Sodium, Blood 135 mmol/L (136-145)
--- NOTE | 2019-10-22 10:00 | NUR ---
Pt visit this AM. Pt resting in bed with at bedside. Pt reports his nauea is managed. Abby request a prescription for anit nausea medication be sent home with Pt incase he becomes nauseated before hospice arrives. No other concerns reported at this time. Spoke with Dr Rivera and relayed family's request for a prescription of anti nausea medication. Palliative Care will remain available.
[2019-10-22] MEDS ORDERED: PROC5 PO (10:22)
--- NOTE | 2019-10-22 10:59 | NUR ---
PT TO DISCHARGE HOME ON HOSPICE CARE. IV REMOVED BY NURSE, NO SS OF INFECTION NOTED. PT DRESSED BY SELF AND BELONGINGS PACKED BY FAMILY. MEDS FAXED OVER TO [facility], BRANDYN DUS EDUCATED ON. PT TOLD TO FOLLOW UP WIHT PCP AND THAT HOSPICE WOULD FOLLOW UP THE NEXT DAY. THIS NURSE TOOK PATIENT DOWN VIA WC AND HELPED HIM INTO CAR TO BE TAKEN HOME BY .
== END 2019-10-22 10:44 | disposition hospice, home (50) | DRG 871 ==
LOC: ER 01:21 → MEDS 04:26 → PCU 04:26 → MEDS 10-21 15:50
PROVIDERS: Emergency Medicine; Internal Medicine; Pharmacist; ADMIT Family Medicine
PROC: 0W9B3ZZ Drainage of Left Pleural Cavity, Percutaneous Approach (ICD-10-PCS; principal; 2019-10-19)
DX: A41.9 Sepsis, unspecified organism (principal); J18.9 Pneumonia, unspecified organism; J96.01 Acute respiratory failure with hypoxia; C83.10 Mantle cell lymphoma, unspecified site; J91.0 Malignant pleural effusion; I10 Essential (primary) hypertension; E03.9 Hypothyroidism, unspecified; E83.42 Hypomagnesemia; Z51.5 Encounter for palliative care; E78.5 Hyperlipidemia, unspecified; G47.30 Sleep apnea, unspecified; D64.9 Anemia, unspecified; D69.6 Thrombocytopenia, unspecified; E87.6 Hypokalemia; E86.0 Dehydration; E66.9 Obesity, unspecified; Z68.28 Body mass index [BMI] 28.0-28.9, adult; Z92.21 Personal history of antineoplastic chemotherapy; Z87.891 Personal history of nicotine dependence
CPT/HCPCS: 0099U; 32555; 36415; 36600; 71045; 71260; 80048; 80053; 80202; 81001; 82042; 82803; 82945; 83605; 83615; 83735; 83880; 83986; 84145; 84157; 84484; 85025; 85610; 87040; 87070; 87205; 88108; 88305; 89051; 93005; 93010; 93306; 94762; 96365; 96367; 96368; 96375; 97162; 99285-25; A9270-GY; J0456; J0692; J1650; J1940; J1956; J2405; J3370; J3475; J7030; J7050; Q9967

== ENCOUNTER 2019-11-01 18:32 | Emergency (ER) | payer OTHER ==
[~2019-11-01] VITALS: Ht 180.3 cm; Wt 80.3 kg
[~2019-11-01 18:32] MED LIST changes: +ALLO100 PO; +DEXA4 PO; +HYDRA25 PO; +HYDROCHLOROTHIA25 MG PO; +IRBE150 PO; +METO10 PO; +POTA10T PO; +PROC5 PO
[2019-11-01] MEDS ORDERED: LORA.5 PO (18:58)
[2019-11-01] MEDS ORDERED: ALLO300 PO (18:58)
[2019-11-01] MEDS ORDERED: Diflucan10 MG/1 ML PO (19:04)
[2019-11-01] MEDS ORDERED: Prozac40 MG PO (19:12)
[2019-11-01 19:24] LABS: Hematocrit 31.8 % (37.0-53.0); Hemoglobin 10.8 g/dL (13.5-17.5); Mean Corpuscular HGB 31.3 pg (26.0-34.0); Mean Corpuscular Volume 92 fL (80-100); Mean Platelet Volume 11.4 fL (9.1-12.4); RDW Coefficient Variation 18.7 % (11.7-14.2); RDW Standard Deviation 62.2 fL (35.1-46.3); Red Blood Cell Count 3.45 M/mm3 (4.30-5.90); White Blood Cell Count 5.32 K/mm3 (4.00-11.30)
[2019-11-01 19:25] LABS: Platelet Count 92 K/mm3 (150-400)
[2019-11-01 19:45] LABS: BAND PERCENT MAN 3 % (0-8); BASOPHILS PERCENT MAN 0 % (0-2); EOSINOPHILS PERCENT MAN 0 % (0-6); LYMPHOCYTES % ATYPICAL MANUAL 8 % (0-0); LYMPHOCYTES ABSOLUTE MAN 1.11 K/mm3 (0.84-5.20); LYMPHOCYTES PERCENT MAN 13 % (21-46); MONOCYTES ABSOLUTE MAN 0.31 K/mm3 (0.16-1.47); MONOCYTES PERCENT MAN 6 % (4-13); NEUTROPHILS ABSOLUTE MAN 3.88 K/mm3 (1.96-9.15); SEG NEUTROPHILS PERCENT MAN 70 % (41-73); TOTAL CELLS COUNTED 100
[2019-11-01 19:49] LABS: Alanine Aminotransfer (ALT/SGP 18 U/L (12-78); Albumin, Blood 2.5 g/dL (3.4-5.0); Alk Phos 100 U/L (50-136); Anion Gap 9 mmol/L (6-16); Aspartate Aminotrans (AST/SGOT 23 U/L (12-37); Bilirubin, Total 0.6 mg/dL (0.1-1.0); Blood Urea Nitrogen 11 mg/dL (8-24); Bun/Creatinine Ratio 10.6 (12.0-20.0); CO2, Blood 25 mmol/L (21-32); Calcium, Blood 7.8 mg/dL (8.5-10.1); Chloride, Blood 107 mmol/L (98-108); Creatinine, Blood 1.04 mg/dL (0.60-1.20); Globulin, Blood 2.5 g/dL (2.2-4.0); Glomerular Filtration Rate >60 (60-); Glucose, Blood 91 mg/dL (70-99); Potassium, Blood 3.9 mmol/L (3.5-5.5); Sodium, Blood 141 mmol/L (136-145)
[2019-11-01 21:39] LABS: Source, Urine Clean Catch
[2019-11-01] MEDS ORDERED: VALACYCLOVIR1000 M1 PO (21:39)
[2019-11-01] MEDS ORDERED: Percocet 5-3251 EACH PO (21:42)
[2019-11-01 21:47] LABS: Appearance, Urine Clear (Clear); Bilirubin, Urine Neg (Neg); Blood, Urine 3+ (Neg); Color, Urine Amber (P-Yellow); Glucose Qualitative, Urine Neg (Neg); Ketones, Urine 2+ (Neg); Leukocyte Esterase, Urine 1+ (Neg); Nitrite, Urine Neg (Neg); Protein, Urine 2+ (Neg); Specific Gravity, Urine 1.015 (1.003-1.022); Urobilinogen, Urine 2+ (Normal)
[2019-11-01 21:57] LABS: Bacteria Mod /hpf; Mucus Light (0-Heavy); Squamous Epithelial Cells Not Seen /hpf (Few)
== END 2019-11-01 22:12 | disposition home or self-care (01) ==
LOC: ER 18:32
PROVIDERS: Emergency Medicine
DX: K12.1 Other forms of stomatitis (principal); C85.90 Non-Hodgkin lymphoma, unspecified, unspecified site; Z79.899 Other long term (current) drug therapy; I10 Essential (primary) hypertension; G47.30 Sleep apnea, unspecified; Z87.891 Personal history of nicotine dependence
CPT/HCPCS: 36415; 71046; 80053; 81001; 85025; 87086; 93005; 93010; 96360; 96361; 99284-25; J7120

== ENCOUNTER 2020-06-29 14:33 | Day surgery (SDC) | payer OTHER ==
[~2020-06-29 14:33] MED LIST changes: +AMLODIPINE BES2.5 MG PO; +ASCO500 PO; +Diflucan10 MG/1 ML PO; +EUTHYROX25 MC1 PO; +Hair, Skin & N1 EACH PO; +LORA.5 PO; +Percocet 5-3251 EACH PO; +VALACYCLOVIR1000 M1 PO; +VALTREX500 M2 PO
== END 2020-06-29 23:02 | disposition home or self-care (01) ==
LOC: US 14:33
DX: J90 Pleural effusion, not elsewhere classified (principal); C85.90 Non-Hodgkin lymphoma, unspecified, unspecified site
CPT/HCPCS: 32555; 71045

== ENCOUNTER 2020-11-22 16:24 | Inpatient (IN) | payer OTHER, MEDICARE ==
[~2020-11-22] VITALS: Ht 180.3 cm; Wt 88.5 kg
[~2020-11-22 16:24] MED LIST changes: -AMLODIPINE BES2.5 MG PO; -ASCO500 PO; -EUTHYROX25 MC1 PO; -Hair, Skin & N1 EACH PO; -VALTREX500 M2 PO
[2020-11-22 16:57] LABS: Hematocrit 28.3 % (37.0-53.0); Hemoglobin 9.1 g/dL (13.5-17.5); Mean Corpuscular HGB 31.4 pg (26.0-34.0); Mean Corpuscular HGB Conc 32.2 g/dL (31.5-36.5); Mean Corpuscular Volume 98 fL (80-100); Mean Platelet Volume 11.6 fL (9.1-12.4); Platelet Count 82 K/mm3 (150-400); RDW Coefficient Variation 15.3 % (11.7-14.2); White Blood Cell Count 3.32 K/mm3 (4.00-11.30)
[2020-11-22 17:22] LABS: Alanine Aminotransfer (ALT/SGP 57 U/L (12-78); Albumin/Globulin Ratio 0.6 (0.8-1.8); Alk Phos 234 U/L (50-136); Anion Gap 8 mmol/L (6-16); Aspartate Aminotrans (AST/SGOT 126 U/L (12-37); Bilirubin, Total 1.9 mg/dL (0.1-1.0); Blood Urea Nitrogen 29 mg/dL (8-24); Bun/Creatinine Ratio 26.1 (12.0-20.0); CO2, Blood 22 mmol/L (21-32); Calcium, Blood 8.5 mg/dL (8.5-10.1); Chloride, Blood 111 mmol/L (98-108); Creatinine, Blood 1.11 mg/dL (0.60-1.20); Globulin, Blood 3.4 g/dL (2.2-4.0); Glomerular Filtration Rate >60 (60-); Glucose, Blood 139 mg/dL (70-99); Potassium, Blood 4.9 mmol/L (3.5-5.5); Sodium, Blood 141 mmol/L (136-145); Total Protein, Blood 5.4 g/dL (6.4-8.2); Troponin I 0.139 ng/mL (0.000-0.040)
[2020-11-22 17:40] LABS: BAND PERCENT MAN 1 % (0-8); BASOPHILS PERCENT MAN 0 % (0-2); EOSINOPHILS PERCENT MAN 0 % (0-6); LYMPHOCYTES ABSOLUTE MAN 0.06 K/mm3 (0.84-5.20); LYMPHOCYTES PERCENT MAN 2 % (21-46); MONOCYTES ABSOLUTE MAN 0.06 K/mm3 (0.16-1.47); MONOCYTES PERCENT MAN 2 % (4-13); NEUTROPHILS ABSOLUTE MAN 3.18 K/mm3 (1.96-9.15); SEG NEUTROPHILS PERCENT MAN 95 % (41-73); TOTAL CELLS COUNTED 100
[2020-11-22 18:02] LABS: Influenza A, PCR NEGATIVE (NEGATIVE); Influenza B, PCR NEGATIVE (NEGATIVE); Resp Syncytial Virus, PCR NEGATIVE (NEGATIVE); SARS-Cov-2 (COVID-19) PCR, MMC NEGATIVE (NEGATIVE)
[2020-11-22] MEDS ORDERED: ONDA8 PO (18:20)
[2020-11-22] MEDS ORDERED: Prednisone10 MG PO (18:21)
[2020-11-22] MEDS ORDERED: ALLO300 PO (18:21)
[2020-11-22] MEDS ORDERED: TRAZ50 PO (18:21)
[2020-11-22] MEDS ORDERED: Prozac40 MG PO (18:23)
[2020-11-22] MEDS ORDERED: AMLO5 PO (18:23)
[2020-11-22] MEDS ORDERED: EUTHYROX25 MC1 PO (18:24)
[2020-11-22] MEDS ORDERED: Hair, Skin & N1 EACH PO (18:36)
[2020-11-22] MEDS ORDERED: ASCO500 PO (18:36)
[2020-11-22] MEDS ORDERED: VALTREX500 M2 PO (18:36)
[2020-11-22] MEDS ORDERED: ACET325 PO (18:37)
[2020-11-22] MEDS ORDERED: NAPROXEN SODIU220 MG PO (18:37)
[2020-11-23 00:37] LABS: BASOPHILS PERCENT AUTO 0 % (0-2); EOSINOPHILS PERCENT AUTO 0 % (0-6); Hematocrit 27.2 % (37.0-53.0); Hemoglobin 8.6 g/dL (13.5-17.5); Mean Corpuscular HGB 30.9 pg (26.0-34.0); Mean Corpuscular HGB Conc 31.6 g/dL (31.5-36.5); Mean Corpuscular Volume 98 fL (80-100); Mean Platelet Volume 11.2 fL (9.1-12.4); Platelet Count 74 K/mm3 (150-400); RDW Coefficient Variation 15.2 % (11.7-14.2); RDW Standard Deviation 54.1 fL (35.1-46.3); Red Blood Cell Count 2.78 M/mm3 (4.30-5.90); White Blood Cell Count 2.44 K/mm3 (4.00-11.30)
[2020-11-23 00:41] LABS: IMMATURE GRAN ABSOLUTE AUTO 0.06 K/mm3 (0.00-0.10); IMMATURE GRAN PERCENT AUTO 3 % (0-1); LYMPHOCYTES ABSOLUTE AUTO 0.26 K/mm3 (0.84-5.20); LYMPHOCYTES PERCENT AUTO 11 % (21-46); MONOCYTES PERCENT AUTO 4 % (4-13); NEUTROPHILS ABSOLUTE AUTO 2.02 K/mm3 (1.96-9.15); NEUTROPHILS PERCENT AUTO 83 % (41-73)
[2020-11-23 00:55] LABS: Alanine Aminotransfer (ALT/SGP 51 U/L (12-78); Albumin/Globulin Ratio 0.6 (0.8-1.8); Alk Phos 212 U/L (50-136); Anion Gap 4 mmol/L (6-16); Aspartate Aminotrans (AST/SGOT 101 U/L (12-37); BAND PERCENT MAN 3 % (0-8); BASOPHILS PERCENT MAN 0 % (0-2); Blood Urea Nitrogen 30 mg/dL (8-24); Bun/Creatinine Ratio 27.5 (12.0-20.0); CO2, Blood 27 mmol/L (21-32); Calcium, Blood 8.5 mg/dL (8.5-10.1); Chloride, Blood 110 mmol/L (98-108); Creatinine, Blood 1.09 mg/dL (0.60-1.20); EOSINOPHILS PERCENT MAN 0 % (0-6); Globulin, Blood 3.4 g/dL (2.2-4.0); Glomerular Filtration Rate >60 (60-); Glucose, Blood 142 mg/dL (70-99); LYMPHOCYTES ABSOLUTE MAN 0.26 K/mm3 (0.84-5.20); LYMPHOCYTES PERCENT MAN 11 % (21-46); MONOCYTES ABSOLUTE MAN 0.07 K/mm3 (0.16-1.47); MONOCYTES PERCENT MAN 3 % (4-13); NEUTROPHILS ABSOLUTE MAN 2.02 K/mm3 (1.96-9.15); OTHER CELL PERCENT MAN 3 % (0-0); Potassium, Blood 4.7 mmol/L (3.5-5.5); SEG NEUTROPHILS PERCENT MAN 80 % (41-73); Sodium, Blood 141 mmol/L (136-145); TOTAL CELLS COUNTED 100; Total Protein, Blood 5.4 g/dL (6.4-8.2)
[2020-11-23 00:59] LABS: Troponin I 0.078 ng/mL (0.000-0.040)
--- NOTE | 2020-11-23 07:36 | NUR ---
SHIFT SUMMARY PT ARRIVED TO THE UNIT AROUND 2034 AND WAS ABLE TO STAND AND TRANSFER TO BED W/O DIZZINESS OR SOB. PT ON 5LPM NC WITH O2 SATS >90%. PT REPORTED FEELING MUCH BETTER BY THE TIME HE WAS SETTLED IN HIS ROOM. VITALS WERE STABLE WITH BP 100-102 SYSTOLIC, MAP >70. HR 70-80'S, TELE SHOWING PVC'S AND PAC'S. O2 SATS >90% ON ROOM AIR WITH NO SOB, LUNGS COARSE. PT IS VERY PLEASENT AND COOPERATIVE WITH CARE. ALERT AND ORIENTED AND HAD AN UNEVENTFUL NIGHT.
--- NOTE | 2020-11-23 08:17 | NUR ---
Bedside report was received about an hour ago. PT was awake, alert, and without any complaints. Oxygen requirement is 4 l/min at rest. [facility]ila from heart center here to to echocardiogram, labs for troponin also drawn this morning. Pt does not appear dyspneic at rest, but he is tachypneic and requiring oxygen support, which he does not use at home. States he has had CLL, melanoma, and now the lymphoma.
[2020-11-23 08:46] LABS: Troponin I 0.053 ng/mL (0.000-0.040)
--- NOTE | 2020-11-23 08:57 | NUR ---
ECHOCARDIOGRAM COMPLETE
--- NOTE | 2020-11-24 02:26 | NUR ---
PT IS AWAKE IN ROOM STATES THAT HE IS SEEING SHARIFA CHARACTERS ON PEREZ AND CEILING.
--- NOTE | 2020-11-24 03:17 | NUR ---
SHIFT SUMMARY PT IS ALERT AND ORIENTED IN ROOM. PT IS VERY PLEASENT. VITALS ARE NORMAL AND SATS ARE >92% ON 2L NC O2. THERE HAVE BEEN NO ACUTE CHANGES. PT USES URINAL AT BESIDE AND USES CALL LIGHT APPROPRIETLY. HE HAS BEEN RECIEVING ANTIBIOTIOCS IV WITH NO ISSUES. CALLED MEDICAL FLOOR AND GAVE REPORT TO DELROY GOTTLIEB. WILL BE TRANSFERING TO ROOM 336 WITH ALL BELONGINGS VIA HOSPITAL BED.
[2020-11-24 05:29] LABS: Hematocrit 30.4 % (37.0-53.0); Hemoglobin 9.4 g/dL (13.5-17.5); Mean Corpuscular HGB 30.3 pg (26.0-34.0); Mean Corpuscular HGB Conc 30.9 g/dL (31.5-36.5); Mean Corpuscular Volume 98 fL (80-100); Mean Platelet Volume 11.4 fL (9.1-12.4); Platelet Count 87 K/mm3 (150-400); RDW Coefficient Variation 15.2 % (11.7-14.2); RDW Standard Deviation 54.2 fL (35.1-46.3); White Blood Cell Count 2.25 K/mm3 (4.00-11.30)
--- NOTE | 2020-11-24 05:34 | NUR ---
SHIFT SUMMARY: PT ARRIVED FROM PCU AROUND 350 THIS MORNING. AOX3, 1 ASSIST TO THE BATHROOM. LS CLEAR T/O. MILD SOB WITH EXERTION. SATS JUST ABOVE 90%. VS WNL, AFEBRILE. DENIES ANY PAIN OR DISCOMFORT. NO EDEMA. HAS BEEN LAYING IN BED SINCE ARRIVAL AND DENIES ANY NEEDS OR CONCERNS. DID GET UP TO BATHROOM AND HAD A BM. NO OTHER ACUTE CHANGES, CALL LIGHT IS IN REACH.
[2020-11-24 06:04] LABS: Anion Gap 7 mmol/L (6-16); Blood Urea Nitrogen 29 mg/dL (8-24); Bun/Creatinine Ratio 26.1 (12.0-20.0); CO2, Blood 27 mmol/L (21-32); Calcium, Blood 9.2 mg/dL (8.5-10.1); Chloride, Blood 107 mmol/L (98-108); Creatinine, Blood 1.11 mg/dL (0.60-1.20); Glomerular Filtration Rate >60 (60-); Glucose, Blood 75 mg/dL (70-99); Potassium, Blood 4.3 mmol/L (3.5-5.5); Sodium, Blood 141 mmol/L (136-145)
--- NOTE | 2020-11-24 19:13 | NUR ---
PT AA&OX4. COOPERATIVE AND PLEASANT. SBA, CALLS APPROPRIATELY. APPETITE POOR WORKING WITH DIETITIAN, BM TODAY. DENIES PAIN. RR EVEN AND UNLABORED ON 1.5L NC. LCTA. NO SKIN ISSUES NOTED. PT HAS NO QUESTIONS OR CONCERNS AT THIS TIME. REPORT GIVEN TO ELINOR GOTTLIEB.
--- NOTE | 2020-11-25 06:31 | NUR ---
SHIFT SUMMARY PT IS A 75 Y/O MALE, ADMITTED FOR PNA. HE IS A&O X 4, INDEPENDENT IN THE ROOM. NO C/O PAIN, NAUSEA OR SOB. VITAL SIGNS STABLE. CURRENTLY ON 1L OF O2 VIA NC. NO ACUTE CHANGES IN PT CONDITION NOTED. WILL CONTINUE TO MONITOR AND TREAT PER EMAR UNTIL HAND OFF TO DAY SHIFT RN.
[2020-11-25] MEDS ORDERED: PROBIOTIC1 EA13 PO (12:19)
[2020-11-25] MEDS ORDERED: LASIX20 M2 PO (12:19)
[2020-11-25] MEDS ORDERED: LEVOFLOXACIN750 MG PO (12:20)
--- NOTE | 2020-11-25 13:19 | NUR ---
DISCHARGED:home with , staff escorted in wc to family vehicle then assisted in, REVIEWED stay, appointments, discharge instructions and medications REMOVED:iv with no serious side effects or repircussions
== END 2020-11-25 13:15 | disposition home or self-care (01) | DRG 871 ==
LOC: ER 16:24 → PCU 19:24 → MEDS 11-24 03:39
PROVIDERS: Emergency Medicine; Internal Medicine; Physician Assistant; ADMIT Internal Medicine
DX: A41.9 Sepsis, unspecified organism (principal); J96.01 Acute respiratory failure with hypoxia; J18.9 Pneumonia, unspecified organism; C85.90 Non-Hodgkin lymphoma, unspecified, unspecified site; Z20.822 Contact with and (suspected) exposure to COVID-19; I10 Essential (primary) hypertension; D50.9 Iron deficiency anemia, unspecified; E03.9 Hypothyroidism, unspecified; E78.5 Hyperlipidemia, unspecified; G47.30 Sleep apnea, unspecified; Z87.891 Personal history of nicotine dependence
CPT/HCPCS: 0241U; 36415; 71046; 71260; 80048; 80053; 82550; 83605; 83880; 84484; 85025; 85027; 93005; 93010; 93306; 94760; 94761; 99285-25; A9270; J0696; J1650; J1940; J1956; J7050; J7512; Q9967